=== PATIENT | female | born 1990 | race Caucasian/White ===

== ENCOUNTER → 2016-06-10 | Outpatient (CLI) | payer OTHER ==
[~2016-06-10] MED LIST: ACET65TA OR; ALBU17IN INH; BACT800T OR; BUPR15TA PO; COLA100C2 OR; COLA50CA3 PO; IBUP400T OR; LABE20TAB PO; LEXA1TAB PO; MEDR1VL IM; NAPR250T2 PO; ORTHO TRYCYCLINE PO; PERC5TAB PO; PERCOCET PO; PROC10CA PO; ZOFR8TAB OR; ZOLO50TA OR
--- NOTE | 2016-06-10 18:38 | REP ---
Focused right breast sonography: History: Pain and swelling right breast from 7 o'clock to 11 o'clock. Status-post recent prior breast reduction surgery. Findings: Sonographic evaluation of the area of pain and swelling in the right breast which the patient reports is subsiding is performed. This shows a complex fluid collection consistent with hematoma seroma extending from 11 o'clock to 7 o'clock. This measures 6.9 x 1.6 x 9.5 cm. There is some edematous tissue posterior the nipple. No mass or simple cyst is seen. Somewhat heterogeneous fibroglandular background echotexture is seen. Impression: Hematoma seroma cavity noted in the right breast post reduction surgery. Clinical follow-up is advised. Sonographic follow-up could be considered depending on clinical course. BIRADS category II benign right breast imaging. Signed by Khang Ayoub MD 06/10/2016 08:22 P
== END ==
LOC: M RAD 14:28
PROVIDERS: ATTEND Physician Assistant
DX: N64.4 Mastodynia (principal)

== ENCOUNTER → 2016-08-25 | Outpatient (CLI) | payer OTHER ==
--- NOTE | 2016-08-26 11:31 | REP ---
MR LUMBAR SPINE WITHOUT CONTRAST: HISTORY: Sciatica. Decreased signal intensity on T2-weighted images is present in the L5-S1 intervertebral disc. The disc is decreased in height. These findings are consistent with disc degeneration. There is no disc bulge or herniation at the L1-2 through L3-4 levels. The nerves exit the neural foramina without compression. A diffuse disc bulge is present at the L4-5 level. There is minimal compression of the thecal sac. The L4 nerves exit the neural foramina without compression. A diffuse disc bulge and small disc protrusion central and eccentric to the right are present at the L5-S1. There is minimal compression of the thecal sac. The L5 nerves exit the neural foramina without compression. The conus medullaris is normal in appearance terminating at the level of the T12-L1 intervertebral disc. Normal signal intensity is present in the lumbar vertebral bodies. IMPRESSION: 1. Diffuse disc bulge at the L4-5 level with minimal thecal sac compression. 2. Diffuse disc bugle and small disc protrusion at the L5-S1 level with minimal thecal sac compression. Signed by Last Lee MD 08/26/2016 11:32 A
== END ==
LOC: M RAD 16:48
PROVIDERS: ATTEND Physician Assistant Medical
DX: M54.41 Lumbago with sciatica, right side (principal); M51.26 Other intervertebral disc displacement, lumbar region

== ENCOUNTER → 2016-10-21 | Outpatient (CLI) | payer OTHER ==
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
== END ==
LOC: M PAIN 13:20
PROVIDERS: ATTEND Nurse Practitioner Family
DX: G89.29 Other chronic pain (principal); M51.26 Other intervertebral disc displacement, lumbar region; M54.31 Sciatica, right side; M54.16 Radiculopathy, lumbar region; F41.9 Anxiety disorder, unspecified; F34.1 Dysthymic disorder; Z91.013 Allergy to seafood; Z88.8 Allergy status to other drugs, medicaments and biological substances; Z79.899 Other long term (current) drug therapy

== ENCOUNTER → 2016-11-03 | Outpatient (CLI) | payer OTHER ==
[~2016-11-03] MED LIST changes: +ISOVUE-M 300 61% 15ML VIAL (Q9967) As Ordered ONE; +LIDOCAINE 1% SDV INJ 30 ML VIAL As Ordered ONE; +diazePAM 5 MG TAB As Ordered ONE; +diphenhydrAMINE INJ 50MG/ML VIAL (J1200) As Ordered ONE; +methylPREDNISolone SUSP 40 MG/ML (DEPO-medrol) VIAL (J1030) As Ordered ONE; +oxyCODONE 5MG TAB As Ordered ONE
--- NOTE | 2016-11-03 17:35 | REP ---
FLUOROSCOPIC GUIDED SPINAL INJECTION: The films were reviewed with Dr. Hernández. The patient has a history of chronic low back pain and leg numbness. The portable C-ARM was provided in the OR by Dr. Perkins for fluoroscopic guidance. 3 intraoperative fluoroscopic spot films were obtained for needle placement verification for lumbar epidural injection. The films are on the PACS system and are available for review. 14 seconds of fluoroscopic time was utilized for this procedure. Reviewed by CAYLA Darnell 11/04/2016 04:30 PEdited and Signed by Sascha Hernández MD 11/04/2016 07:52 P
--- NOTE | 2016-11-13 00:25 | ECWPNPC ---
PATIENT NAME: DANNY WALSH : 1990 GENDER: FEMALE VISIT DATE: 11/03/2016 DISCHARGE DATE: 11/03/16 1106 VISIT LOCKED DATE TIME: PHYSICIAN: JONATHAN GALAVIZ RESOURCE: JONATHAN GALAVIZ REASON FOR APPOINTMENT 1. INTRAMINAL LUMBAR HISTORY OF PRESENT ILLNESS HISTORY OF PRESENT ILLNESS: PAIN THE PATIENT DESCRIBES THE PAIN... FALL RISK SCREENING: SCREENING :NO FALLS IN THE PAST YEAR CURRENT MEDICATIONS TAKING TYLENOL EXTRA STRENGTH 500 MG TABLET 2 TABLETS NEEDED ORALLY EVERY 6 HRS, NOTES: 11/02/16 1000 TAKING MOBIC 15 MG TABLET 1 TABLET ORALLY ONCE A DAY, NOTES: 11/01/16 1000 NOT-TAKING GABAPENTIN 100 MG CAPSULE DIRECTED ORALLY TAKE 1 AT BEDTIME - MAY INCREASE TO 3 TIMES PER DAY FOR INCREASED PAIN, NOTES: NOT TAKING NOT-TAKING FLUOXETINE HCL 20 MG CAPSULE 1 CAPSULE IN THE MORNING ORALLY ONCE A DAY NOT-TAKING ATIVAN 0.5 MG TABLET 1 TAB ORALLY ONCE, 30 MIN PRIOR TO MRI NOT-TAKING TRAMADOL HCL 50 MG TABLET 1 TAB ORALLY EVERY 6 HOURS NEEDED/MMD#4 PER SURGEON NOT-TAKING SINGULAIR 10 MG TABLET 1 TABLET IN THE EVENING ORALLY ONCE A DAY NOT-TAKING SPRINTEC 28 0.25-35 MG-MCG TABLET 1 TABLET ORALLY ONCE A DAY MEDICATION LIST REVIEWED AND RECONCILED WITH THE PATIENT PAST MEDICAL HISTORY 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 PREVIOUSLY ON CELEXA AND ZOLOFT ALLERGIES CEPHLASPORINS: PT UNSURE: ALLERGY WELLBUTRIN: CONFUSION: ALLERGY SEAFOODS: MILD BREAKOUT SOMETIMES SURGICAL HISTORY C SECTION 05/28/2013 BREAST REDUCTION (BOTH) @ [facility] 03/25/16 HOSPITALIZATION/MAJOR DIAGNOSTIC PROCEDURE CHILDBIRTH 06/06 ADVERSE REACTION TO WELLBUTRIN - HALLUCINATIONS 2014 REVIEW OF SYSTEMS CONSTITUTIONAL: ANY CHANGE IN YOUR MEDICAL CONDITION? NO . CHILLS NO . FEVER NO . INFECTION: DO YOU HAVE NEW INFECTIONS? NO . DO YOU HAVE HISTORY OF MRSA? NO . MUSCULOSKELETAL: ANY NEW PATTERNS OF PAIN OR NUMBNESS? NO . GASTROENTEROLOGY: ANY NEW CHANGE IN BOWEL CONTROL? NO . GENITOURINARY: ANY NEW CHANGE IN BLADDER CONTROL? NO . IS THERE A CHANCE YOU COULD BE ? NO . HEMATOLOGY/LYMPH: DO YOU TAKE ANY BLOOD THINNERS? (FOR EXAMPLE- COUMADIN, PLAVIX, AGGRENOX, PLATEL, PRADAXA, OR XARELTO) NO . WHEN WAS YOUR LAST DOSE? DATE: TIME: . NEUROLOGY: HAVE YOU FALLEN IN THE PAST 6 MONTHS? NO . ANY NEW EXTREMITY NUMBNESS OR WEAKNESS? NO . CARDIOLOGY: DO YOU HAVE A PACEMAKER OR DEFIBRILLATOR? NO . RESPIRATORY: HAVE YOU BEEN SICK IN THE PAST WEEK? NO . FEVER NO . FLU LIKE SYMPTOMS? NO . COUGH NO . INTEGUMENTARY: DO YOU HAVE ANY RASHES OR OPEN SORES? NO . ALLERGIC/IMMUNO: ARE YOU ALLERGIC TO SHELLFISH OR IV DYE? YES HIVES WHEN EATING SHELLFISH. PT STATES SHE HAS BEEN ABLE TO HAVE IV DYE AND USE BETADINE WITHOUT PROBLEM. DR. GALAVIZ NOTIFIED OF ALLERGY AND REACTIONS. . ANY NEW ALLERGIES? NO . PSYCHIATRIC: DO YOU HAVE THOUGHTS OF HURTING YOURSELF OR SOMEONE ELSE? NO . ARE YOU ABUSED, NEGLECTED, OR IN AN UNSAFE ENVIRONMENT? NO . ENDOCRINOLOGY: ARE YOU DIABETIC? NO . OTHER: DO YOU NEED ANY PRESCRIPTIONS? NO . IF YES, PLEASE LIST: ____ . ANY NEW PROBLEMS WITH YOUR MEDICATIONS? NO . WHEN DID YOU LAST EAT? ____11/02/16 1800 . WHEN DID YOU LAST DRINK? ____11/02/16 1800 . WHAT DID YOU LAST DRINK? ____WATER . NAME OF PERSON DRIVING YOU HOME? ____SHAWN . DO YOU HAVE ANY OTHER QUESTIONS OR CONCERNS NO . REVIEWED BY: PROVIDER: . VITAL SIGNS WT 203 LBS, HT 70", BMI 29.12 INDEX, BP 110/63 MM HG, HR 70 /MIN, RR 16 /MIN, TEMP 98.1 F, OXYGEN SAT % 97%, SAFE IN ENV? (Y/N) YES, NA INITIALS TN 09:02, REVIEWED BY: MARLA. MILENA INTERVERTEBRAL DISC DISORDERS WITH RADICULOPATHY, LUMBOSACRAL REGION - M51.17 (PRIMARY) PROCEDURES PRE PROCEDURE DIAGNOSIS LUMBOSACRAL RADICULOPATHY, LUMBOSACRAL DISC DISORDER WITH RADICULOPATHY POST PROCEDURE DIAGNOSIS LUMBOSACRAL RADICULOPATHY , LUMBOSACRAL DISC DISORDER WITH RADICULOPATHY PROCEDURE L5-S1 LUMBAR EPIDURAL STEROID INJECTION UNDER FLUOROSCOPIC GUIDANCE SURGEON DR. JONATHAN GALAVIZ BRAND ATTENDANT NONE ANESTHESIA LOCAL PRE PROCEDURE NOTE THE PATIENT HAS A HISTORY OF CHRONIC LOW BACK PAIN. I EVALUATE THE PATIENT AND REVIEWED THE CHART. I WENT OVER THE RISKS, ALTERNATIVES, AND BENEFITS ASSOCIATED WITH THIS PROCEDURE. THE PATIENT WOULD LIKE TO PROCEED AND GIVE CONSENT TO PERFORMED THE PROCEDURE. THE PATIENT DENIES UNEXPLAINABLE WEIGHT LOSS, FEVER, CHILLS, OR NEW CHANGES IN URINARY OR BOWEL CONTROL. DESCRIPTION OF PROCEDURE THE PATIENT WAS BROUGHT TO THE PROCEDURE ROOM AND PLACED IN THE PRONE POSITION. THE LUMBOSACRAL AREA WAS CLEANED WITH BETADINE SOLUTION AND DRAPED ASEPTICALLY. THE PROCEDURE WAS DONE UNDER STERILE CONDITIONS. I CHECKED LATERALITY AND THE LEVEL WHERE THE PROCEDURE WAS GOING TO BE PERFORMED WITH THE PATIENT AND THE SUPPORTING STAFF AT THE MOMENT OF THE TIME OUT IN THE PROCEDURE ROOM. UNDER FLUOROSCOPIC GUIDANCE, THE TARGET POINT WAS SELECTED AT THE INTERLAMINAR LEVEL OF L5-S1. LIDOCAINE WAS USED TO NUMB THE SKIN AND THE SUBCUTANEOUS TISSUE BELOW IT. EPIDURAL TUOHY NEEDLE, 17-GAUGE, WAS ADVANCED UNDER FLUOROSCOPIC GUIDANCE AND FOLLOWING PATIENT FEEDBACK UNTIL THE EPIDURAL SPACE WAS REACHED, 7 CM DEEP INTO THE SKIN BY THE LOSS OF RESISTANCE TECHNIQUE. ISOVUE M DYE 30%, 0.25 ML, WAS INJECTED SHOWING ADEQUATE SPREAD OF THE DYE. THEN, A SOLUTION OF 3 ML OF NORMAL SALINE WITH DEPO-MEDROL 60 MG WAS INJECTED SLOWLY FOLLOWING PATIENT FEEDBACK. THERE WAS NO EVIDENCE OF BLOOD, PARESTHESIA OR CEREBROSPINAL FLUID DURING THE PROCEDURE. THE PATIENT WAS SENT TO THE RECOVERY ROOM. THE PATIENT WAS MOVING THE EXTREMITIES AND DOING WELL. THERE WAS NO COMPLICATION DURING THE PROCEDURE. FLUOROSCOPY TIME WAS 14 SECONDS. POST PROCEDURE NOTE THE PATIENT WILL BE SEEN IN A FOLLOW UP IN THE NEXT FEW WEEKS. INSTRUCTIONS WERE GIVEN, QUESTIONS WERE ANSWERED, AND THE PATIENT EXPRESSED UNDERSTANDING AND AGREES WITH THE PLAN. I, JOSLYN ROMO, DOCUMENTED THE ABOVE INFORMATION ACTING A SCRIBE FOR DR. GALAVIZ. I HAVE REVIEWED THE ABOVE DOCUMENT, WRITTEN BY JOSLYN ROMO SCRIBE AND I VERIFY THAT IT IS ACCURATE DIAGNOSTIC IMAGING [facility] FLUORO GUIDE SPINE INJECTION (PAIN)[id number] PROCEDURE CODES 59633 LUMBAR/SACRAL W/ IMAGING 6045F RADXPS IN END [id number] PXD DISPOSITION & COMMUNICATION FOLLOW UP 3 WEEKS ELECTRONICALLY SIGNED BY JONATHAN GALAVIZ MD ON 11/12/2016 AT 09:06 AM EDT DISCLAIMER : THIS IS A VISIT SUMMARY EXTRACTED FROM THE [employer] CHART. IT IS NOT A COPY OF THE [employer] PROGRESS NOTE. MTDD
== END ==
LOC: M PAIN 08:40
PROVIDERS: ATTEND Anesthesiology
DX: G89.29 Other chronic pain (principal); M51.17 Intervertebral disc disorders with radiculopathy, lumbosacral region; F41.9 Anxiety disorder, unspecified; E66.01 Morbid (severe) obesity due to excess calories; Z91.013 Allergy to seafood; Z88.8 Allergy status to other drugs, medicaments and biological substances; Z68.29 Body mass index [BMI] 29.0-29.9, adult; Z79.1 Long term (current) use of non-steroidal anti-inflammatories (NSAID); Z79.899 Other long term (current) drug therapy

== ENCOUNTER → 2016-11-10 | Outpatient (CLI) | payer OTHER ==
[~2016-11-10] MED LIST changes: -ISOVUE-M 300 61% 15ML VIAL (Q9967) As Ordered ONE; -LIDOCAINE 1% SDV INJ 30 ML VIAL As Ordered ONE; -diazePAM 5 MG TAB As Ordered ONE; -diphenhydrAMINE INJ 50MG/ML VIAL (J1200) As Ordered ONE; -methylPREDNISolone SUSP 40 MG/ML (DEPO-medrol) VIAL (J1030) As Ordered ONE; -oxyCODONE 5MG TAB As Ordered ONE
== END ==
LOC: M RAD 17:44
PROVIDERS: ATTEND Physician Assistant Medical
DX: M54.9 Dorsalgia, unspecified (principal)

== ENCOUNTER → 2016-11-17 | Outpatient (CLI) | payer OTHER ==
[~2016-11-17] MED LIST changes: -NAPR250T2 PO; +NAPR250T4 PO
--- NOTE | 2016-11-20 01:31 | ECWPNPC ---
PATIENT NAME: DANNY WALSH : 1990 GENDER: FEMALE VISIT DATE: 11/17/2016 DISCHARGE DATE: 11/17/16 1532 VISIT LOCKED DATE TIME: PHYSICIAN: GELNN HUANG RESOURCE: GLENN HUANG REASON FOR APPOINTMENT 1. POST LE HISTORY OF PRESENT ILLNESS HISTORY OF PRESENT ILLNESS: PAIN THE PATIENT DESCRIBES THE PAIN... FALL RISK SCREENING: SCREENING :NO FALLS IN THE PAST YEAR TODAY'S VISIT: NOTES: RATES PAIN TODAY 7-8/10. DESCRIBES PAIN CONSTANT, SHARP AND STABBING AND THROBBING. IS STATUS POST LESB COMPLETED ON 11/03/16. STATES GABAPENTIN IS NOT HELPINGHAD WORST PAIN EVER IN THE LOW BACK- WITH RADIATION TO HIPS. HASN'T LOST CONTROL OF RIGHT LEG SINCE INJECTION. FIRST FEW DAYS WERE FAIRLY COMFORTABLE. STATES THAT SHE HASNT BEEN ABLE TO BE ACTIVE SHE WOULD LIKE TO BE BUT HAS BEEN ABLE TO WORK AROUND HER HOME.. CURRENT MEDICATIONS TAKING TYLENOL EXTRA STRENGTH 500 MG TABLET 2 TABLETS NEEDED ORALLY EVERY 6 HRS TAKING MOBIC 15 MG TABLET 1 TABLET ORALLY ONCE A DAY TAKING GABAPENTIN 100 MG CAPSULE DIRECTED ORALLY TAKE 1 AT BEDTIME - MAY INCREASE TO 3 TIMES PER DAY FOR INCREASED PAIN NOT-TAKING FLUOXETINE HCL 20 MG CAPSULE 1 CAPSULE IN THE MORNING ORALLY ONCE A DAY NOT-TAKING ATIVAN 0.5 MG TABLET 1 TAB ORALLY ONCE, 30 MIN PRIOR TO MRI NOT-TAKING TRAMADOL HCL 50 MG TABLET 1 TAB ORALLY EVERY 6 HOURS NEEDED/MMD#4 PER SURGEON NOT-TAKING SINGULAIR 10 MG TABLET 1 TABLET IN THE EVENING ORALLY ONCE A DAY NOT-TAKING SPRINTEC 28 0.25-35 MG-MCG TABLET 1 TABLET ORALLY ONCE A DAY MEDICATION LIST REVIEWED AND RECONCILED WITH THE PATIENT PAST MEDICAL HISTORY 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 PREVIOUSLY ON CELEXA AND ZOLOFT ALLERGIES CEPHLASPORINS: PT UNSURE: ALLERGY WELLBUTRIN: CONFUSION: ALLERGY SEAFOODS: MILD BREAKOUT SOMETIMES SURGICAL HISTORY C SECTION 05/28/2013 BREAST REDUCTION (BOTH) @ [facility] 03/25/16 HOSPITALIZATION/MAJOR DIAGNOSTIC PROCEDURE CHILDBIRTH 06/06 ADVERSE REACTION TO WELLBUTRIN - HALLUCINATIONS 2014 REVIEW OF SYSTEMS REVIEWED BY: PROVIDER: GLENN HUANG DIRECTOR OF DISTANCE LEARNING . CONSTITUTIONAL: ANY CHANGE IN YOUR MEDICAL CONDITION? NO . CHILLS NO . FEVER NO . INFECTION: DO YOU HAVE NEW INFECTIONS? NO . DO YOU HAVE HISTORY OF MRSA? NO . MUSCULOSKELETAL: ANY NEW PATTERNS OF PAIN OR NUMBNESS? NO . GASTROENTEROLOGY: ANY NEW CHANGE IN BOWEL CONTROL? NO . GENITOURINARY: ANY NEW CHANGE IN BLADDER CONTROL? NO . IS THERE A CHANCE YOU COULD BE ? NO . HEMATOLOGY/LYMPH: DO YOU TAKE ANY BLOOD THINNERS? (FOR EXAMPLE- COUMADIN, PLAVIX, AGGRENOX, PLATEL, PRADAXA, OR XARELTO) NO . WHEN WAS YOUR LAST DOSE? DATE: TIME: . NEUROLOGY: HAVE YOU FALLEN IN THE PAST 6 MONTHS? NO . ANY NEW EXTREMITY NUMBNESS OR WEAKNESS? NO . CARDIOLOGY: DO YOU HAVE A PACEMAKER OR DEFIBRILLATOR? NO . RESPIRATORY: HAVE YOU BEEN SICK IN THE PAST WEEK? NO . FEVER NO . FLU LIKE SYMPTOMS? NO . COUGH NO . INTEGUMENTARY: DO YOU HAVE ANY RASHES OR OPEN SORES? NO . ALLERGIC/IMMUNO: ARE YOU ALLERGIC TO SHELLFISH OR IV DYE? YES, SHELLFISH . ANY NEW ALLERGIES? NO . PSYCHIATRIC: DO YOU HAVE THOUGHTS OF HURTING YOURSELF OR SOMEONE ELSE? NO . ARE YOU ABUSED, NEGLECTED, OR IN AN UNSAFE ENVIRONMENT? NO . ENDOCRINOLOGY: ARE YOU DIABETIC? NO . OTHER: DO YOU NEED ANY PRESCRIPTIONS? YES, TO DISCUSS SOMETHING OTHER THAN GABAPENTIN . IF YES, PLEASE LIST: ____ . ANY NEW PROBLEMS WITH YOUR MEDICATIONS? NO . WHEN DID YOU LAST EAT? ____ . WHEN DID YOU LAST DRINK? ____ . WHAT DID YOU LAST DRINK? ____ . NAME OF PERSON DRIVING YOU HOME? ____ . DO YOU HAVE ANY OTHER QUESTIONS OR CONCERNS NO . VITAL SIGNS WT 202.0 LBS, HT 70", BMI 28.98 INDEX, BP 129/77 MM HG, HR 69 /MIN, RR 16 /MIN, TEMP 97.2 F, OXYGEN SAT % 98%, SAFE IN ENV? (Y/N) Y, NA INITIALS TL 1433, REVIEWED BY: LUCIO. EXAMINATION GENERAL EXAMINATION: PSYCHALERT , ORIENTED X 3 , APPROPRIATE MOOD AND AFFECT , NO ACUTE DISTRESS. LUNGS:CLEAR TO AUSCULTATION BILATERALLY. HEART:HEART RATE REGULAR. MUSCULOSKELETAL:POINT TENDERNESS WITH PALPATION OVER THORACIC SPINOUS PROCESSES AND LUMBOSACRAL AXIS. SPECIFIC TENDERNESS ELICITED OVER RIGHT >LLEFT SACRAL ILIAC JOINT. RISES EASILY TO STANDING POSITION. MUSCLE STRENGTH TESTING 5/5 BILATERAL UPPER AND LOWER EXTREMITIES. . SKIN:BILATERAL MEDIAL ANKLE LESIONS, ECCYMOSIS NOTED AT RIGHT KNEE. DIAGNOSTIC TESTS REVIEWEDMRI THORACIC SPINE COMPLETED ON 11/10/16 - REVIEWED AND DISCUSSED WITH PATIENT AND .. 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 [facility] RE[facility]ON:L4-5 DISC EXTRUCION WITH RADICULOPATHY PROCEDURE CODES FA211 ESTABILISHED PATIENT [facility] CHARGE DISPOSITION & COMMUNICATION FOLLOW UP AFTER INJECTION (REASON: REQUEST AUTH FOR THORACIC INTRALAMIAL EPIDURAL AT T6) ELECTRONICALLY SIGNED BY HUNTER MCCOY ON 11/19/2016 AT 08:29 AM EDT DISCLAIMER : THIS IS A VISIT SUMMARY EXTRACTED FROM THE [employer] CHART. IT IS NOT A COPY OF THE [employer] PROGRESS NOTE. MTDD
== END ==
LOC: M PAIN 14:20
PROVIDERS: ATTEND Nurse Practitioner Family
DX: M51.26 Other intervertebral disc displacement, lumbar region (principal); M54.31 Sciatica, right side; M54.16 Radiculopathy, lumbar region; Z79.899 Other long term (current) drug therapy; Z88.1 Allergy status to other antibiotic agents; Z88.8 Allergy status to other drugs, medicaments and biological substances; Z91.013 Allergy to seafood

== ENCOUNTER → 2016-12-01 | Outpatient (CLI) | payer OTHER ==
[~2016-12-01] MED LIST changes: +ISOVUE-M 300 61% 15ML VIAL (Q9967) As Ordered ONE; +LIDOCAINE 1% SDV INJ 30 ML VIAL As Ordered ONE; +diazePAM 5 MG TAB As Ordered ONE; +diphenhydrAMINE INJ 50MG/ML VIAL (J1200) As Ordered ONE; +methylPREDNISolone SUSP 40 MG/ML (DEPO-medrol) VIAL (J1030) As Ordered ONE; +oxyCODONE 5MG TAB As Ordered ONE
--- NOTE | 2016-12-01 12:31 | REP ---
Partial lumbar spine series: Three views . History: Injection procedure for pain. 28 seconds of fluoroscopy time is reported. Findings: A sequence of three fluoroscopically obtained last image hold procedural spot radiographs of the lumbar spine document needle position and contrast injection associated with injection procedure. Signed by Khang Ayoub MD 12/01/2016 12:22 P
--- NOTE | 2016-12-06 23:31 | ECWPNPC ---
PATIENT NAME: DANNY WALSH : 1990 GENDER: FEMALE VISIT DATE: 12/01/2016 DISCHARGE DATE: 12/01/16 1111 VISIT LOCKED DATE TIME: PHYSICIAN: JONATHAN GALAVIZ RESOURCE: JONATHAN GALAVIZ REASON FOR APPOINTMENT 1. REQUEST AUTH FOR THORACIC INTRALAMIAL EPIDURAL AT T6 HISTORY OF PRESENT ILLNESS HISTORY OF PRESENT ILLNESS: PAIN THE PATIENT DESCRIBES THE PAIN... FALL RISK SCREENING: SCREENING :NO FALLS IN THE PAST YEAR CURRENT MEDICATIONS TAKING TYLENOL EXTRA STRENGTH 500 MG TABLET 2 TABLETS NEEDED ORALLY EVERY 6 HRS, NOTES: 2 DAYS AGO TAKING MOBIC 15 MG TABLET 1 TABLET ORALLY ONCE A DAY, NOTES: 12/01/16 1000 TAKING TRAMADOL HCL 50 MG TABLET 1 TAB ORALLY EVERY 6 HOURS NEEDED/MMD#4, NOTES: 12/01/16 1600 TAKING BACLOFEN 10 MG TABLET 1 TABLET WITH FOOD OR MILK ORALLY BID, NOTES: 12/01/16 1000 NOT-TAKING GABAPENTIN 100 MG CAPSULE DIRECTED ORALLY TAKE 1 AT BEDTIME - MAY INCREASE TO 3 TIMES PER DAY FOR INCREASED PAIN NOT-TAKING FLUOXETINE HCL 20 MG CAPSULE 1 CAPSULE IN THE MORNING ORALLY ONCE A DAY NOT-TAKING ATIVAN 0.5 MG TABLET 1 TAB ORALLY ONCE, 30 MIN PRIOR TO MRI NOT-TAKING SINGULAIR 10 MG TABLET 1 TABLET IN THE EVENING ORALLY ONCE A DAY NOT-TAKING SPRINTEC 28 0.25-35 MG-MCG TABLET 1 TABLET ORALLY ONCE A DAY MEDICATION LIST REVIEWED AND RECONCILED WITH THE PATIENT PAST MEDICAL HISTORY 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 PREVIOUSLY ON CELEXA AND ZOLOFT ALLERGIES CEPHLASPORINS: PT UNSURE: ALLERGY WELLBUTRIN: CONFUSION: ALLERGY SEAFOODS: MILD BREAKOUT SOMETIMES REVIEW OF SYSTEMS REVIEWED BY: PROVIDER: . CONSTITUTIONAL: ANY CHANGE IN YOUR MEDICAL CONDITION? NO . CHILLS NO . FEVER NO . INFECTION: DO YOU HAVE NEW INFECTIONS? NO . DO YOU HAVE HISTORY OF MRSA? NO . MUSCULOSKELETAL: ANY NEW PATTERNS OF PAIN OR NUMBNESS? NO . GASTROENTEROLOGY: ANY NEW CHANGE IN BOWEL CONTROL? NO . GENITOURINARY: ANY NEW CHANGE IN BLADDER CONTROL? NO . IS THERE A CHANCE YOU COULD BE ? NO . HEMATOLOGY/LYMPH: DO YOU TAKE ANY BLOOD THINNERS? (FOR EXAMPLE- COUMADIN, PLAVIX, AGGRENOX, PLATEL, PRADAXA, OR XARELTO) NO . WHEN WAS YOUR LAST DOSE? DATE: TIME: . NEUROLOGY: HAVE YOU FALLEN IN THE PAST 6 MONTHS? NO . ANY NEW EXTREMITY NUMBNESS OR WEAKNESS? NO . CARDIOLOGY: DO YOU HAVE A PACEMAKER OR DEFIBRILLATOR? NO . RESPIRATORY: HAVE YOU BEEN SICK IN THE PAST WEEK? CHEST CONGESTION X 3 DAYS RAISING SMALL AMT CLEAR MUCUS.SHE FEELS IT IS ALLERGY RELATED BECAUSE SHE FEELS BETTER THE DAY GOES ON. . FEVER NO . FLU LIKE SYMPTOMS? NO . COUGH NO . INTEGUMENTARY: DO YOU HAVE ANY RASHES OR OPEN SORES? NO . ALLERGIC/IMMUNO: ARE YOU ALLERGIC TO SHELLFISH OR IV DYE? SEAFOOD--MILD HIVES . ANY NEW ALLERGIES? NO . PSYCHIATRIC: DO YOU HAVE THOUGHTS OF HURTING YOURSELF OR SOMEONE ELSE? NO . ARE YOU ABUSED, NEGLECTED, OR IN AN UNSAFE ENVIRONMENT? NO . ENDOCRINOLOGY: ARE YOU DIABETIC? NO . OTHER: DO YOU NEED ANY PRESCRIPTIONS? NO . IF YES, PLEASE LIST: ____ . ANY NEW PROBLEMS WITH YOUR MEDICATIONS? NO . WHEN DID YOU LAST EAT? 11/30/161999 . WHEN DID YOU LAST DRINK? 11/30/161999 . WHAT DID YOU LAST DRINK? WATER . NAME OF PERSON DRIVING YOU HOME? GIACOMO . DO YOU HAVE ANY OTHER QUESTIONS OR CONCERNS NO . VITAL SIGNS WT 202.0 LBS, HT 70", BMI 28.98 INDEX, BP 126/67 MM HG, HR 88 /MIN, RR 16 /MIN, TEMP 98.4 F, OXYGEN SAT % 100%, NA INITIALS TL 0918, REVIEWED BY: DANIE LMP: 12/14/16. 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 JONATHAN GALAVIZ AGRONOMY RESEARCH MANAGER NONE ANESTHESIA LOCAL PRE PROCEDURE NOTE THE PATIENT HAS A HISTORY OF CHRONIC THORACIC PAIN. I EVALUATE THE PATIENT AND REVIEWED THE CHART. I WENT OVER THE RISKS, ALTERNATIVES, AND BENEFITS ASSOCIATED WITH THIS PROCEDURE. THE PATIENT WOULD LIKE TO PROCEED AND GIVE CONSENT TO PERFORMED THE PROCEDURE. THE PATIENT DENIES UNEXPLAINABLE WEIGHT LOSS, FEVER, CHILLS, OR NEW CHANGES IN URINARY OR BOWEL CONTROL. DESCRIPTION OF PROCEDURE THE PATIENT WAS BROUGHT TO THE PROCEDURE ROOM AND PLACED IN THE PRONE POSITION. THE THORACIC AREA WAS CLEANED WITH BETADINE SOLUTION AND DRAPED ASEPTICALLY. THE PROCEDURE WAS DONE UNDER STERILE CONDITIONS. I CHECKED LATERALITY AND THE LEVEL WHERE THE PROCEDURE WAS GOING TO BE PERFORMED WITH THE PATIENT AND THE SUPPORTING STAFF AT THE MOMENT OF THE TIME OUT IN THE PROCEDURE ROOM. UNDER FLUOROSCOPIC GUIDANCE, THE TARGET POINT WAS SELECTED AT THE INTERLAMINAR LEVEL OF T9-T10. LIDOCAINE WAS USED TO NUMB THE SKIN AND THE SUBCUTANEOUS TISSUE BELOW IT. EPIDURAL TUOHY NEEDLE, 17-GAUGE, WAS ADVANCED UNDER FLUOROSCOPIC GUIDANCE AND FOLLOWING PATIENT FEEDBACK UNTIL THE EPIDURAL SPACE WAS REACHED 6 CM DEEP INTO THE SKIN BY THE LOSS OF RESISTANCE TECHNIQUE. ISOVUE M DYE 30%, 0.25 ML, WAS INJECTED SHOWING ADEQUATE SPREAD OF THE DYE. THEN, A SOLUTION OF 3 ML OF NORMAL SALINE WITH DEPO-MEDROL 60 MG WAS INJECTED SLOWLY FOLLOWING PATIENT FEEDBACK. THERE WAS NO EVIDENCE OF BLOOD, PARESTHESIA OR CEREBROSPINAL FLUID DURING THE PROCEDURE. THE PATIENT WAS SENT TO THE RECOVERY ROOM. THE PATIENT WAS MOVING THE EXTREMITIES AND DOING WELL. THERE WAS NO COMPLICATION DURING THE PROCEDURE. FLUOROSCOPY TIME WAS 28 SECONDS POST PROCEDURE NOTE THE PATIENT WILL BE SEEN IN A FOLLOW UP IN THE NEXT FEW WEEKS. INSTRUCTIONS WERE GIVEN, QUESTIONS WERE ANSWERED, AND THE PATIENT EXPRESSED UNDERSTANDING AND AGREED WITH THE PLAN. I, RAMA AGUILERA, DOCUMENTED THE ABOVE INFORMATION ACTING A SCRIBE FOR DR. GALAVIZ. I HAVE REVIEWED THE ABOVE DOCUMENT, WRITTEN BY RAMA ENRIQUEZ AND I VERIFY THAT IT IS ACCURATE DIAGNOSTIC IMAGING [facility] FLUORO GUIDE SPINE INJECTION (PAIN)[id number] PROCEDURE CODES 09876 CERVICAL/THORACIC W/ IMAGING 6045F RADXPS IN END [id number] PXD DISPOSITION & COMMUNICATION FOLLOW UP 3 WEEKS ELECTRONICALLY SIGNED BY JONATHAN GALAVIZ MD ON 12/06/2016 AT 09:35 PM EDT DISCLAIMER : THIS IS A VISIT SUMMARY EXTRACTED FROM THE [employer] CHART. IT IS NOT A COPY OF THE [employer] PROGRESS NOTE. MTDCristiana
== END ==
LOC: M PAIN 10:20
PROVIDERS: ATTEND Anesthesiology
DX: G89.29 Other chronic pain (principal); M51.14 Intervertebral disc disorders with radiculopathy, thoracic region; E66.01 Morbid (severe) obesity due to excess calories; F41.9 Anxiety disorder, unspecified; F34.1 Dysthymic disorder; Z91.013 Allergy to seafood; Z88.8 Allergy status to other drugs, medicaments and biological substances; Z79.1 Long term (current) use of non-steroidal anti-inflammatories (NSAID); Z79.891 Long term (current) use of opiate analgesic; Z79.899 Other long term (current) drug therapy

== ENCOUNTER → 2017-04-23 | Outpatient (CLI) | payer OTHER ==
[~2017-04-23] MED LIST changes: -ISOVUE-M 300 61% 15ML VIAL (Q9967) As Ordered ONE; -LIDOCAINE 1% SDV INJ 30 ML VIAL As Ordered ONE; -diazePAM 5 MG TAB As Ordered ONE; -diphenhydrAMINE INJ 50MG/ML VIAL (J1200) As Ordered ONE; -methylPREDNISolone SUSP 40 MG/ML (DEPO-medrol) VIAL (J1030) As Ordered ONE; -oxyCODONE 5MG TAB As Ordered ONE
--- NOTE | 2017-04-23 12:09 | REP ---
Clinical: Lumbago and sciatica. Comparison: 03/13/2016 Technique: AP, lateral, bilateral oblique, and coned-down views. Findings: Alignment and lordosis is maintained. The vertebral bodies including transverse process and spinous processes are intact and normal. There is no evidence for acute fracture / compression injury or subluxation. No evidence for spondylolysis or spondylolisthesis. Mild endplate sclerosis and disc space narrowing at the L4-5 and L5-S1 level cannot be excluded. No further degenerative changes are identified. Impression: Mild degenerative changes at the L4-5 and L5-L1 level cannot be excluded. Otherwise normal examination. Signed by Vaibhav Yao MD 04/23/2017 12:01 P
== END ==
LOC: M ADAMS 11:45
PROVIDERS: ATTEND Physician Assistant Medical
DX: M51.36 Other intervertebral disc degeneration, lumbar region (principal); M54.41 Lumbago with sciatica, right side

== ENCOUNTER → 2017-07-19 | Outpatient (REF) | payer OTHER | LOC: M LAB REF 12:12 | DX: J02.9 Acute pharyngitis, unspecified (principal) ==

== ENCOUNTER → 2017-08-16 | Outpatient (CLI) | payer OTHER | LOC: M ADAMS 10:11 | DX: M79.651 Pain in right thigh (principal) | CPT/HCPCS: 73552 ==

== ENCOUNTER 2018-04-26 10:24 | Emergency (ER) | payer OTHER ==
[2018-04-26] MEDS: diazePAM 5 MG TAB PO (12:32)
[2018-04-26] MEDS: ONDANSETRON 4 MG ORAL DISINTEGRATING TAB (Q0162 PER 1MG) PO (12:32)
[2018-04-26] MEDS: KETOROLAC 60 MG/2 ML VIAL (J1885) IM (12:37)
== END 2018-04-26 13:48 | disposition home or self-care (01) ==
LOC: M ED 10:24
DX: S39.012A Strain of muscle, fascia and tendon of lower back, initial encounter (principal); M51.36 Other intervertebral disc degeneration, lumbar region; M62.830 Muscle spasm of back; X50.1XXA Overexertion from prolonged static or awkward postures, initial encounter; Y92.9 Unspecified place or not applicable; Y93.9 Activity, unspecified; Y99.9 Unspecified external cause status; Z79.899 Other long term (current) drug therapy; Z88.0 Allergy status to penicillin; Z88.8 Allergy status to other drugs, medicaments and biological substances
CPT/HCPCS: Q0162

== ENCOUNTER → 2018-06-21 | Outpatient (REF) | payer OTHER ==
[~2018-06-21] MED LIST changes: +MELO15TA28; +NAPR-885 PO; +NORCOTAB PO; +ROBA750T4 PO
[2018-06-21 19:56] LABS: BASO % 0.1 % (0.0-1.0); EOS # 0.1 10^3/uL (0.0-0.50); EOS % 0.8 % (0.0-3.0); HEMATOCRIT 37.4 % (36.0-47.0); HEMOGLOBIN 12.9 g/dl (12.0-15.5); LYMPH # 1.8 10^3/uL (1.5-6.5); LYMPH % 23.9 % (24.0-44.0); MEAN CORPUSCULAR HEMOGLOBIN 29.9 pg (27.0-33.0); MEAN CORPUSCULAR HGB CONC 34.5 g/dl (32.0-36.5); MEAN CORPUSCULAR VOLUME 86.8 fl (80.0-96.0); MONO # 0.5 10^3/uL (0.0-0.8); MONO % 6.4 % (0.0-5.0); NEUTROPHILS # 5.3 10^3/uL (1.8-7.7); NEUTROPHILS % 68.4 % (36.0-66.0); PLATELET COUNT, AUTOMATED 215 10^3/uL (150-450); RED BLOOD COUNT 4.31 10^6/uL (4.00-5.40); WHITE BLOOD COUNT 7.7 10^3/uL (4.0-10.0)
[2018-06-21 20:09] LABS: ALBUMIN 4.2 GM/DL (3.2-5.2); ALT/SGPT 15 U/L (12-78); BILIRUBIN,TOTAL 0.4 MG/DL (0.2-1.0); BLOOD UREA NITROGEN 18 MG/DL (7-18); C REACTIVE PROTEIN QUANTITATIV < 0.30 MG/DL (0.00-0.30); CALCIUM LEVEL 8.7 MG/DL (8.5-10.1); CARBON DIOXIDE LEVEL 27 MEQ/L (21-32); CHLORIDE LEVEL 106 MEQ/L (98-107); CREATININE FOR GFR 0.78 MG/DL (0.55-1.30); GLOMERULAR FILTRATION RATE > 60.0 (>60); GLUCOSE, FASTING 64 MG/DL (70-100); POTASSIUM SERUM 4.2 MEQ/L (3.5-5.1); SODIUM LEVEL 139 MEQ/L (136-145); THYROID STIMULATING HORMONE 0.972 uIU/ML (0.358-3.740)
[2018-06-21 20:48] LABS: ERYTHROCYTE SEDIMENTATION RATE 2 mm/hr (0-20)
[2018-06-24 00:07] LABS: Lyme Disease IgG/IgM Antibodie <0.91 ISR (0.00-0.90); Lyme Disease IgM Ab Quantitati <0.80 index (0.00-0.79)
== END ==
LOC: M SFHCADAM 13:22
PROVIDERS: ATTEND Physician Assistant Medical
DX: M25.50 Pain in unspecified joint (principal); R53.82 Chronic fatigue, unspecified

== ENCOUNTER → 2018-07-09 | Outpatient (CLI) | payer OTHER ==
--- NOTE | 2018-07-10 09:03 | REP ---
RIGHT ANKLE COMPLETE: 07/09/2018. CLINICAL HISTORY: Pain. FINDINGS: Four views are provided. There is prominent soft tissue swelling anterolaterally at the ankle, but no visible or displaced fracture of the distal tibia or fibula. No avulsion. Mortise joint is symmetric and preserved. No talar dome osteochondral defect. Subtalar joints are intact. No heel spurs. Talonavicular and calcaneocuboid joints normal. Visualized tarsal bones and proximal metatarsals, unremarkable. IMPRESSION: 1. Soft tissue swelling anterolateral aspect of the ankle without visible or displaced fracture, avulsion, disruption of the mortise joint, or other acute finding. Electronically Signed by José Miguel Bojorquez MD 07/10/2018 09:14 A
== END ==
LOC: M ADAMS 14:47
PROVIDERS: ATTEND Physician Assistant
DX: M79.9 Soft tissue disorder, unspecified (principal)

== ENCOUNTER → 2019-01-19 | Outpatient (CLI) | payer OTHER ==
[~2019-01-19] MED LIST changes: +HYDR-3715 PO; +LABE200T13 PO; -LABE20TAB PO; -NORCOTAB PO; +ONDA-227 OR; +OXYC1TAB23 PO; -PERCOCET PO; -ZOFR8TAB OR
--- NOTE | 2019-01-19 11:31 | REP ---
CT of the head without contrast Indication: Headache. Comparison: CT head of May 29, 2015. Technique: Axial CT of the head was performed without contrast. Findings: There is no visible soft tissue swelling or calvarial fracture. There is no evidence of acute intracranial hemorrhage or extra-axial fluid collection. Hernández-white matter differentiation is maintained. There is no mass effect or midline shift. The basal cisterns are patent. There is no hydrocephalus. The visualized paranasal sinuses and mastoid air cells are clear. Impression: No acute intracranial abnormality. Electronically Signed by Demarco Ni MD 01/19/2019 11:22 A
== END ==
LOC: M RAD 11:00
PROVIDERS: ATTEND Physician Assistant
DX: R51 Headache (principal)

== ENCOUNTER → 2019-02-03 | Outpatient (CLI) | payer OTHER ==
--- NOTE | 2019-02-03 19:03 | REPVR ---
EXAM: MR Head Without Contrast EXAM DATE/TIME: 02/03/2019 4:57 PM CLINICAL HISTORY: 28 years old, female; Pain; Headache; Migraine; Without aura; Does not respond to medication; Severity not specified TECHNIQUE: Imaging protocol: MR of the head without contrast. COMPARISON: MRI-Brain without Contrast 07/31/2014 1:30 PM FINDINGS: Brain: There is no evidence of infarct, rivera-white matter differentiation is preserved. There is no hemorrhage or extra-axial collection. There is no mass. DWI images demonstrate no evidence of acute infarct. Gradient echo images demonstrate no evidence of hemorrhage. There is no evidence of demyelinating disease. Ventricles: There is no hydrocephalus. Bones/joints: Unremarkable. Soft tissues: Unremarkable. Sinuses: Normal as visualized. No acute sinusitis. Mastoid air cells: Normal as visualized. No mastoid effusion. Orbits: Unremarkable. Other vasculature: There are no abnormal flow voids. IMPRESSION: Normal brain MRI. Electronically signed by: Raza Siddiqui On 02/03/2019 19:03:21 PM
== END ==
LOC: M RAD 16:54
PROVIDERS: ATTEND Physician Assistant Medical
DX: G43.909 Migraine, unspecified, not intractable, without status migrainosus (principal)

== ENCOUNTER → 2019-03-23 | Outpatient (CLI) | payer OTHER ==
--- NOTE | 2019-03-23 14:34 | REP ---
Five views lumbar spine: 03/23/2019. Indication: Low back pain. Lumbar radiculopathy. Comparison: 04/23/2017. Findings: There is no acute fracture, subluxation or dislocation. No erosive osseous lesions are detected. The paraspinal soft tissues are without acute abnormality. There is mild disc space narrowing most pronounced at L5/S1. Impression: No acute osseous injury of the lumbar spine. If symptoms persist, recommend MRI evaluation. Electronically Signed by Oscar Price DO 03/23/2019 02:26 P
== END ==
LOC: M ADAMS 14:11
PROVIDERS: ATTEND Physician Assistant Medical
DX: M54.16 Radiculopathy, lumbar region (principal)

== ENCOUNTER → 2019-04-03 | Outpatient (CLI) | payer OTHER ==
--- NOTE | 2019-04-03 14:41 | REP ---
Six views TMJs: 04/03/2019. Indication: Jaw pain. Comparison: Head CT dated 01/19/2019. Findings: There is no subluxation or dislocation. No acute fracture is detected. Adequate rotation and translation are demonstrated during open mouth imaging. No lytic or blastic osseous lesions are detected. Impression: Unremarkable TMJs. Electronically Signed by Oscar Price DO 04/03/2019 02:33 P
== END ==
LOC: M ADAMS 13:56
PROVIDERS: ATTEND Physician Assistant Medical
DX: R68.84 Jaw pain (principal)

== ENCOUNTER → 2019-05-15 | Outpatient (CLI) | payer OTHER ==
--- NOTE | 2019-05-16 09:47 | REP ---
Clinical: Pain with recent injury . Technique: Internal rotation, external rotation, and Y view left shoulder . Findings: No acute fracture or dislocation. The acromioclavicular and glenohumeral joints are intact. No periarticular calcifications or degenerative changes are appreciated. Sub acromial space is normal. Surrounding soft tissues are unremarkable. Impression: Normal left shoulder radiographs. Electronically Signed by Vaibhav Yao MD 05/15/2019 02:25 P
--- NOTE | 2019-05-16 09:47 | REP ---
Clinical: Trauma. Technique: Two views of the left clavicle. Findings: No acute fracture or dislocation. Sternoclavicular and acromioclavicular joints are intact and normal. Surrounding soft tissues are unremarkable. Impression: No acute fracture or dislocation. Electronically Signed by Vaibhav Yao MD 05/15/2019 02:20 P
== END ==
LOC: M ADAMS 14:03
PROVIDERS: ATTEND Physician Assistant
DX: S40.012A Contusion of left shoulder, initial encounter (principal); X58.XXXA Exposure to other specified factors, initial encounter

== ENCOUNTER → 2020-11-29 | Outpatient (REF) | payer OTHER ==
[~2020-11-29] MED LIST changes: +NAPR-849 PO; -NAPR250T4 PO
[2020-11-29 19:12] LABS: C REACTIVE PROTEIN QUANTITATIV < 0.30 MG/DL (0.00-0.30); RHEUMATOID FACTOR QUANT < 10.0 IU/ML (<15.0)
[2020-12-02 17:07] LABS: ANA (HEP2) Negative (.); Lyme Disease IgG/IgM Antibodie <0.91 ISR (0.00-0.90); Lyme Disease IgM Ab Quantitati <0.80 index (0.00-0.79)
== END ==
LOC: M SFHCADAM 16:08
PROVIDERS: ATTEND Physician Assistant Medical
DX: M25.50 Pain in unspecified joint (principal)

== ENCOUNTER → 2021-02-10 | Outpatient (CLI) | payer OTHER ==
--- NOTE | 2021-02-10 16:08 | REP ---
INDICATION: PAIN IN LEFT KNEE COMPARISON: None TECHNIQUE: Five views FINDINGS: The compartments are symmetric and well maintained. There is no acute fracture, dislocation, or subluxation. IMPRESSION: Within normal limits <Electronically signed by Walter Guzman > 02/10/21 [id number]
== END ==
LOC: M ADAMS 11:47
PROVIDERS: ATTEND Physician Assistant Medical
DX: M25.562 Pain in left knee (principal)

== ENCOUNTER 2021-02-13 13:19 | Emergency (ER) | payer OTHER ==
[~2021-02-13] VITALS: Ht 177.8 cm; Wt 97.7 kg
[2021-02-13 13:20] VITALS: BP 135/86
== END 2021-02-13 16:10 | disposition left against medical advice (07) ==
LOC: M ED 13:19
DX: Z53.21 Procedure and treatment not carried out due to patient leaving prior to being seen by health care provider (principal)

== ENCOUNTER → 2021-10-27 | Outpatient (CLI) | payer OTHER ==
[2021-10-27 15:03] LABS: FOLATE 6.5 NG/ML; FREE THYROXINE INDEX 2.3 % (1.3-4.8); RHEUMATOID FACTOR QUANT < 10.0 IU/ML (<15.0); T UPTAKE 37 % (30-39); THYROID STIMULATING HORMONE 0.838 uIU/ML (0.358-3.740); THYROXINE (T4) 6.3 UG/DL (4.5-12.0); TOTAL 25(OH) VITAMIN D 25.6 NG/ML (30.0-100.0); VITAMIN B12 LEVEL 338 PG/ML
== END ==
LOC: M ADAMS 10:55
PROVIDERS: ATTEND Psychiatry & Neurology Neurology
DX: R42 Dizziness and giddiness (principal); R51.9 Headache, unspecified

== ENCOUNTER 2022-03-09 22:45 | Emergency (ER) | payer OTHER ==
[~2022-03-09] VITALS: Ht 177.8 cm; Wt 85.9 kg
[2022-03-10 00:31] LABS: BASO % 0.4 % (0.0-1.0); EOS # 0.1 10^3/uL (0.0-0.5); EOS % 1.3 % (0.0-3.0); HEMATOCRIT 36.1 % (36.0-47.0); HEMOGLOBIN 12.2 g/dl (12.0-15.5); LYMPH # 2.1 10^3/uL (1.5-5.0); LYMPH % 29.5 % (24.0-44.0); MEAN CORPUSCULAR HEMOGLOBIN 29.9 pg (27.0-33.0); MEAN CORPUSCULAR HGB CONC 33.8 g/dl (32.0-36.5); MEAN CORPUSCULAR VOLUME 88.5 fl (80.0-96.0); MONO # 0.7 10^3/uL (0.0-0.8); MONO % 9.8 % (2.0-8.0); NEUTROPHILS # 4.1 10^3/uL (1.5-8.5); NEUTROPHILS % 58.3 % (36.0-66.0); PLATELET COUNT, AUTOMATED 217 10^3/uL (150-450); RED BLOOD COUNT 4.08 10^6/uL (4.00-5.40)
[2022-03-10 00:56] LABS: ALBUMIN 3.9 GM/DL (3.2-5.2); ALT/SGPT 13 U/L (12-78); AMYLASE 23 U/L (25-115); BILIRUBIN,DIRECT 0.1 MG/DL (0.0-0.2); BILIRUBIN,TOTAL 0.4 MG/DL (0.2-1.0); BLOOD UREA NITROGEN 15 MG/DL (7-18); CALCIUM LEVEL 8.8 MG/DL (8.5-10.1); CARBON DIOXIDE LEVEL 26 MEQ/L (21-32); CHLORIDE LEVEL 112 MEQ/L (98-107); CREATININE FOR GFR 0.86 MG/DL (0.55-1.30); GLOMERULAR FILTRATION RATE > 60.0 (>60); GLUCOSE, FASTING 106 MG/DL (70-100); LIPASE 87 U/L (73-393); POTASSIUM SERUM 4.5 MEQ/L (3.5-5.1); SODIUM LEVEL 141 MEQ/L (136-145); TOTAL PROTEIN 6.7 GM/DL (6.4-8.2)
[2022-03-10] MEDS ORDERED: ISOVUE-370 76% 100ML VIAL As Ordered ONE (07:29)
[2022-03-10 07:30] LABS: C REACTIVE PROTEIN QUANTITATIV < 0.30 MG/DL (0.00-0.30)
[2022-03-10 07:48] LABS: ERYTHROCYTE SEDIMENTATION RATE 4 mm/hr (0-20)
[2022-03-10] MEDS ORDERED: MIRA3350 PO (08:26)
[2022-03-10] MEDS ORDERED: COLA100C5 PO (08:26)
[2022-03-10 08:34] VITALS: BP 119/72
== END 2022-03-10 10:01 | disposition home or self-care (01) ==
LOC: M ED 22:45
DX: K60.2 Anal fissure, unspecified (principal); K59.00 Constipation, unspecified; I10 Essential (primary) hypertension; K21.9 Gastro-esophageal reflux disease without esophagitis; G43.909 Migraine, unspecified, not intractable, without status migrainosus; F90.9 Attention-deficit hyperactivity disorder, unspecified type; Z88.1 Allergy status to other antibiotic agents; Z88.8 Allergy status to other drugs, medicaments and biological substances; Z79.51 Long term (current) use of inhaled steroids; Z79.811 Long term (current) use of aromatase inhibitors; Z79.899 Other long term (current) drug therapy
CPT/HCPCS: 36415; 74177; 80048; 80076; 81002; 82150; 83690; 85025; 85652; 86140; 99284; Q9967

== ENCOUNTER → 2022-04-23 | Outpatient (CLI) | payer OTHER ==
[~2022-04-23] MED LIST changes: +COLA100C5 PO; +MIRA3350 PO
[2022-04-23 14:00] LABS: BASO % 0.3 % (0.0-1.0); EOS # 0.1 10^3/uL (0.0-0.5); HEMATOCRIT 40.9 % (36.0-47.0); LYMPH # 0.8 10^3/uL (1.5-5.0); LYMPH % 11.8 % (24.0-44.0); MEAN CORPUSCULAR HEMOGLOBIN 29.7 pg (27.0-33.0); MEAN CORPUSCULAR HGB CONC 34.2 g/dl (32.0-36.5); MEAN CORPUSCULAR VOLUME 86.8 fl (80.0-96.0); MONO # 0.6 10^3/uL (0.0-0.8); MONO % 8.4 % (2.0-8.0); NEUTROPHILS # 5.3 10^3/uL (1.5-8.5); NEUTROPHILS % 78.1 % (36.0-66.0); PLATELET COUNT, AUTOMATED 190 10^3/uL (150-450); RED BLOOD COUNT 4.71 10^6/uL (4.00-5.40); WHITE BLOOD COUNT 6.8 10^3/uL (4.0-10.0)
[2022-04-23 14:36] LABS: ALBUMIN 4.1 G/DL (3.2-5.2); ALKALINE PHOSPHATASE 56 U/L (46-116); ALT/SGPT 15 U/L (7.0-40); AST/SGOT 18 U/L (<34); BILIRUBIN,TOTAL 0.5 MG/DL (0.3-1.2); BLOOD UREA NITROGEN 20 MG/DL (9-23); CALCIUM LEVEL 8.8 MG/DL (8.5-10.1); CARBON DIOXIDE LEVEL 23 MMOL/L (20-31); CHLORIDE LEVEL 106 MMOL/L (98-107); CREATININE FOR GFR 0.86 MG/DL (0.55-1.30); GLOMERULAR FILTRATION RATE > 60.0 (>60); GLUCOSE, FASTING 81 MG/DL (60-100); POTASSIUM SERUM 4.8 MMOL/L (3.5-5.1); SODIUM LEVEL 138 MMOL/L (136-145); TOTAL 25(OH) VITAMIN D 28.7 NG/ML (20.0-100.0); TOTAL PROTEIN 6.8 G/DL (5.7-8.2)
[2022-04-23 14:37] LABS: FOLATE 9.6 NG/ML (>5.4)
[2022-04-23 14:38] LABS: VITAMIN B12 LEVEL 317 PG/ML (211-911)
[2022-04-27 16:10] LABS: BETA-2 GLYCOPROTEIN I ABY IGA <9 (0-25); BETA-2 GLYCOPROTEIN I ABY IGG <9 (0-20); BETA-2 GLYCOPROTEIN I ABY IGM <9 (0-32); CARDIOLIPIN IGA ANTIBODY <9 APL U/mL (0-11); CARDIOLIPIN IGG ANTIBODY <9 GPL U/mL (0-14); CARDIOLIPIN IGM ANTIBODY 12 MPL U/mL (0-12)
== END ==
LOC: M LABDRWAD 11:08
PROVIDERS: ATTEND Psychiatry & Neurology Neurology
DX: E55.9 Vitamin D deficiency, unspecified (principal); E53.8 Deficiency of other specified B group vitamins

== ENCOUNTER → 2022-05-19 | Outpatient (CLI) | payer OTHER ==
[~2022-05-19] MED LIST changes: +AMIT25TA17; +DICY10CA13; +SUMA100T2; +TOPI100T9; +VITA100093 PO
== END ==
LOC: M LABSMTC 09:43
PROVIDERS: ATTEND Anesthesiology
DX: Z01.818 Encounter for other preprocedural examination (principal); Z20.822 Contact with and (suspected) exposure to COVID-19

== ENCOUNTER 2022-05-22 07:26 | Day surgery (SDC) | payer OTHER ==
[~2022-05-22] VITALS: Ht 177.8 cm; Wt 83.9 kg
[~2022-05-22 07:26] MED LIST changes: +NS 1,000 ML IV ONE; +propofoL 500 MG/50 ML VIAL As Ordered ONE
[2022-05-22] MEDS ORDERED: fentaNYL 100 MCG/2 ML INJECTION As Ordered ONE (08:17)
[2022-05-22 08:54] VITALS: BP 124/58
== END 2022-05-22 09:04 | disposition home or self-care (01) ==
LOC: M OPP 07:26
PROVIDERS: ATTEND Surgery
DX: K64.0 First degree hemorrhoids (principal); K60.2 Anal fissure, unspecified; K29.70 Gastritis, unspecified, without bleeding; K21.9 Gastro-esophageal reflux disease without esophagitis; M19.90 Unspecified osteoarthritis, unspecified site; F41.9 Anxiety disorder, unspecified; F32.A Depression, unspecified; G43.909 Migraine, unspecified, not intractable, without status migrainosus; Z88.1 Allergy status to other antibiotic agents; Z88.8 Allergy status to other drugs, medicaments and biological substances; Z91.013 Allergy to seafood; Z79.899 Other long term (current) drug therapy

== ENCOUNTER → 2023-09-07 | Outpatient (REF) | payer OTHER ==
[~2023-09-07] MED LIST changes: -AMIT25TA17; +AMIT25TA19; +DICY-61; -DICY10CA13; -NS 1,000 ML IV ONE; -propofoL 500 MG/50 ML VIAL As Ordered ONE
[2023-09-07 14:34] LABS: BASO % 0.5 % (0.0-1.0); EOS # 0.2 10^3/uL (0.0-0.5); HEMATOCRIT 42.3 % (36.0-47.0); HEMOGLOBIN 14.4 g/dl (12.0-15.5); LYMPH # 1.8 10^3/uL (1.5-5.0); LYMPH % 27.5 % (24.0-44.0); MEAN CORPUSCULAR HEMOGLOBIN 30.5 pg (27.0-33.0); MEAN CORPUSCULAR VOLUME 89.6 fl (80.0-96.0); MONO # 0.4 10^3/uL (0.0-0.8); MONO % 5.4 % (2.0-8.0); NEUTROPHILS # 4.2 10^3/uL (1.5-8.5); NEUTROPHILS % 63.3 % (36.0-66.0); PLATELET COUNT, AUTOMATED 241 10^3/uL (150-450); RED BLOOD COUNT 4.72 10^6/uL (4.00-5.40); WHITE BLOOD COUNT 6.7 10^3/uL (4.0-10.0)
[2023-09-07 14:44] LABS: ERYTHROCYTE SEDIMENTATION RATE < 1 mm/hr (0-20)
[2023-09-07 14:55] LABS: URIC ACID 3.9 MG/DL (3.1-7.8)
[2023-09-07 14:58] LABS: C REACTIVE PROTEIN QUANTITATIV < 0.40 MG/DL (<1.0)
[2023-09-07 14:59] LABS: ALBUMIN 4.2 G/DL (3.2-5.2); ALKALINE PHOSPHATASE 47 U/L (46-116); ALT/SGPT 23 U/L (7.0-40); AST/SGOT 17 U/L (<34); BILIRUBIN,TOTAL 0.4 MG/DL (0.3-1.2); BLOOD UREA NITROGEN 11 MG/DL (9-23); CALCIUM LEVEL 9.1 MG/DL (8.5-10.1); CARBON DIOXIDE LEVEL 28 MMOL/L (20-31); CHLORIDE LEVEL 107 MMOL/L (98-107); COMPLEMENT C3 95.5 MG/DL (84.0-160.0); COMPLEMENT C4 13.3 MG/DL (12-36); CREATININE FOR GFR 0.74 MG/DL (0.55-1.30); GLOMERULAR FILTRATION RATE > 60.0 (>60); GLUCOSE, FASTING 65 MG/DL (60-100); POTASSIUM SERUM 4.2 MMOL/L (3.5-5.1); RHEUMATOID FACTOR QUANT 5.7 IU/ML (<14); SODIUM LEVEL 138 MMOL/L (136-145)
[2023-09-16 20:07] LABS: ANA (HEP2) Negative (.); ANCA-ATYPICAL <1:20 titer (Neg:<1:20); ANGIOTENSIN 1 CONVERTING ENZYM 37 U/L (14-82); COMPLEMENT TOTAL (CH50) 60 U/mL (>41); CYCLIC CITRULLINATED PEPTIDE 5 units (0-19); CYTOPLASMIC NEUTROP AB ANCA-C <1:20 titer (Neg:<1:20); HLA-B27 Negative (.); PERINUCLEAR AB ANCA-P <1:20 titer (Neg:<1:20)
== END ==
LOC: M LABDRWAD 13:02
PROVIDERS: ATTEND Physician Assistant
DX: H15.109 Unspecified episcleritis, unspecified eye (principal)

== ENCOUNTER → 2023-09-07 | Outpatient (REF) | payer OTHER ==
[2023-09-07 15:01] LABS: TOTAL 25(OH) VITAMIN D 12.9 NG/ML (20.0-100.0)
[2023-09-07 15:02] LABS: FOLATE 11.7 NG/ML (>5.4); THYROID STIMULATING HORMONE 0.907 uIU/ML (0.55-4.78)
[2023-09-07 15:03] LABS: FREE T4 1.02 NG/DL (0.89-1.76)
[2023-09-07 15:04] LABS: CHOLESTEROL RISK RATIO 2.2 (<5); HDL CHOLESTEROL 61.8 MG/DL (>40); LDL CHOLESTEROL 56.4 MG/DL (<100); NON-HDL-C 74.2 MG/DL
== END ==
LOC: M SFHCADAM 10:07
PROVIDERS: ATTEND Physician Assistant Medical
DX: F41.1 Generalized anxiety disorder (principal); G89.4 Chronic pain syndrome; M79.7 Fibromyalgia; G43.009 Migraine without aura, not intractable, without status migrainosus; M51.36 Other intervertebral disc degeneration, lumbar region; Z23 Encounter for immunization

== ENCOUNTER → 2023-09-20 | Outpatient (CLI) | payer OTHER | LOC: M WUC 09:17 | PROVIDERS: ATTEND Nurse Practitioner Family | DX: M54.6 Pain in thoracic spine (principal); W01.10XA Fall on same level from slipping, tripping and stumbling with subsequent striking against unspecified object, initial encounter; M41.34 Thoracogenic scoliosis, thoracic region ==

== ENCOUNTER → 2024-04-08 | Outpatient (REF) | payer OTHER | LOC: M LAB REF 20:24 | PROVIDERS: ATTEND Physician Assistant | DX: B34.9 Viral infection, unspecified (principal) ==

== ENCOUNTER → 2024-07-06 | Outpatient (CLI) | payer OTHER ==
[2024-07-06 18:55] LABS: BASO % 0.3 % (0.0-1.0); EOS # 0.1 10^3/uL (0.0-0.5); EOS % 1.2 % (0.0-3.0); HEMATOCRIT 40.1 % (36.0-47.0); LYMPH # 1.9 10^3/uL (1.5-5.0); MEAN CORPUSCULAR HEMOGLOBIN 30.8 pg (27.0-33.0); MEAN CORPUSCULAR HGB CONC 34.9 g/dl (32.0-36.5); MEAN CORPUSCULAR VOLUME 88.3 fl (80.0-96.0); MONO # 0.5 10^3/uL (0.0-0.8); NEUTROPHILS # 4.2 10^3/uL (1.5-8.5); NEUTROPHILS % 62.2 % (36.0-66.0); PLATELET COUNT, AUTOMATED 248 10^3/uL (150-450); RED BLOOD COUNT 4.54 10^6/uL (4.00-5.40); WHITE BLOOD COUNT 6.7 10^3/uL (4.0-10.0)
[2024-07-06 19:09] LABS: ERYTHROCYTE SEDIMENTATION RATE < 1 mm/hr (0-20)
[2024-07-06 19:12] LABS: C REACTIVE PROTEIN QUANTITATIV < 0.50 MG/DL (<1.0)
[2024-07-06 19:20] LABS: TOTAL 25(OH) VITAMIN D 28.5 NG/ML (20.0-100.0)
== END ==
LOC: M PLALAB 14:19
PROVIDERS: ATTEND Physician Assistant Medical
DX: T50.905A Adverse effect of unspecified drugs, medicaments and biological substances, initial encounter (principal)

== ENCOUNTER → 2024-07-18 | Outpatient (CLI) | payer OTHER ==
[~2024-07-18] MED LIST changes: +BENZ200C70 PO
== END ==
LOC: M ADAMS 09:34
PROVIDERS: ATTEND Family Medicine
DX: M54.50 Low back pain, unspecified (principal)

== ENCOUNTER 2024-07-20 07:01 | Emergency (ER) | payer OTHER ==
[~2024-07-20] VITALS: Ht 177.8 cm; Wt 89.7 kg
[~2024-07-20 07:01] MED LIST changes: -BENZ200C70 PO
[2024-07-20] MEDS: BENZONATATE 100MG CAPSULE PO ONE (11:11)
[2024-07-20 11:17] VITALS: BP 123/75; TEMP 98; O2SAT 97
[2024-07-20] MEDS ORDERED: BENZ200C70 PO (11:43)
== END 2024-07-20 11:49 | disposition home or self-care (01) ==
LOC: M ED 07:01
DX: B34.8 Other viral infections of unspecified site (principal); R05.4 Cough syncope; G43.909 Migraine, unspecified, not intractable, without status migrainosus; G90.A Postural orthostatic tachycardia syndrome [POTS]; Z79.899 Other long term (current) drug therapy; Z88.1 Allergy status to other antibiotic agents; Z91.013 Allergy to seafood; Z88.8 Allergy status to other drugs, medicaments and biological substances

== ENCOUNTER → 2024-08-07 | Outpatient (CLI) | payer OTHER ==
[~2024-08-07] MED LIST changes: +BENZ200C70 PO
== END ==
LOC: M RAD 10:11
PROVIDERS: ATTEND Physician Assistant Medical
DX: R10.31 Right lower quadrant pain (principal)